=== PATIENT | female | born 1950 ===

== ENCOUNTER 2018-09-03 14:10 | Inpatient (IN) ==
--- NOTE | 2018-09-03 14:32 | Internal Med History&Physical ---
Addendum entered and electronically signed by Primo Estrada MD 09/03/18 14:45: I have personally performed a face to face evaluation on this patient. I have r eviewed and agree with the care plan. History and Exam by me shows: Patient is status post right total shoulder replacement by Dr. Harrell on August 31, 2018. She has done well without complication, postoperatively. She had a headache earlier today but this was relieved while on her way here, after a hydrocodone pain pill. She frequently has cluster headaches but has not had one for quite some time, states this is her first in months. She has mild photophobia and nausea with them and that was the case, earlier today. Allergies are as listed. Medications were reviewed with patient and nursing. Past surgeries have included recent surgery for left eye pterygium and this had to be revised slightly on 08/24/2018. She has an ointment which she is supposed to be using daily and a were not giving this at her other hospital. I asked her to have our nurse evaluate and include this in her medication regimen. 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 There is no evidence of recurrence. She has hypertension which is controlled, mild diabetes and takes metformin for same. 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 She has a "mild" heart murmur and underwent cardiac catheterization but was told this was normal. She has apparently had mild reflux esophagitis in the past but nothing recently. She has obstructive sleep apnea and for this uses CPAP, at home. She is on oxygen for COPD, allopurinol for gout. She has hyperlipidemia and takes a statin for same. She is a 40 pack year smoking history but stopped in 2004. She has been on oxygen at 2-3 L continuously since December of this year. She drinks a large beer once or twice a month but denies other alcohol drug use or marijuana smoking. She lives alone. 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 She has some dyspnea on exertion with a past history of anemia to make this worse but has now been at her baseline for quite some time. 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 She wears a full upper plate denture and a lower partial plate denture but this has been discarded. Patient has no complaint of chest discomfort, dyspnea, orthopnea, breathing problems, palpitations, nausea or vomiting, constipation or diarrhea, other changes in bowel habits, heartburn, difficulty with urination, kidney problems or kidney stones, fevers chills or sweats, rash or itching, seizures, headache or lightheadedness, heat or cold intolerance, blood problems or anemia, or other new complaints, except as mentioned above. Review of systems is otherwise negative. Examination: (Except as mentioned above): General: In no apparent distress, alert and oriented 3. Head: Atraumatic and normocephalic. Eyes: Extraocular muscles are intact, pupils equal round and reactive to light and accommodation. Sclerae anicteric. She has left lateral scleral abnormality consistent with her history of recent surgery. Ears: External ears are normal to inspection and hearing is grossly normal. Nose: Patent without lesion noted. Mouth: No intraoral lesions seen. Dentition is unremarkable. Full upper denture, as noted. She has most of her teeth even though she does not have a partial in place. Neck: Supple with trachea midline. There is no thyromegaly or adenopathy and carotids are 2+ without bruit heard. Respiratory: No use of accessory muscles. Lungs are clear throughout. Normal airflow. Cardiovascular: Regular rate and rhythm without murmur appreciated. Abdomen: Bowel sounds are normal. No hepatosplenomegaly masses or tenderness. Morbidly obese and therefore difficult to palpate deeply. Extremities: No cyanosis clubbing or edema. She is wearing a right sling. Distal neurovascular function is intact. Neurological: A and O 3. Cranial nerves II through XII are intact. No focal deficits and no abnormal movements or postures. Skin: Warm and non-diaphoretic with no lesions noted. Breasts, pelvic and rectal: Not examined. Patient will be admitted for physical therapy and return to normal function. Because of her recent shoulder surgery, she was advised to use incentive spirometer. We will keep her on oxygen. Until we are sure she is working adequately, she will be treated with heparin subcutaneous for DVT prophylaxis. We will keep her on a cardiac, diabetic diet and follow her sugar with sliding scale insulin and use her home metformin. She will have screening laboratory data. Original Note: Date of Encounter: 09/03/18 Time of Encounter: 14:29 Assessment and Plan (1) Status post reverse total arthroplasty of right shoulder Current visit: Yes Status: Acute Patient is status post right shoulder replacement on 08/31/18. Surgical incision appears healthy with minimal edema and no ecchymosis noted. Patient states that she has minimal pain at this time while at rest to the shoulder. States that pain medication has been effective. Physical therapy evaluation pending. We will continue with current plan of care. Right arm remains in sling with distal CV checks within normal limits (2) Hypertension Current visit: Yes Status: Chronic Vital signs stable. We will continue with current medications. Qualifiers: Hypertension type: unspecified Qualified Code(s): I10 - Essential (primary) hypertension (3) COPD (chronic obstructive pulmonary disease) Current visit: No Status: Chronic Patient with a history of COPD and currently on home O2. Patient denies any dyspnea or productive cough. Lungs are clear throughout but noted diminished bases. Patient likely with distant lung sounds to bases due to obesity. We will continue on current bronchodilators and medication. Qualifiers: COPD type: unspecified COPD Qualified Code(s): J44.9 - Chronic obstructive pulmonary disease, unspecified Internal Medicine - H&P: HPI Chief complaint: right shoulder replacement Admitted From: Home Plans for Post Hospital Care: Home History of present illness: Ms. Walls is a 68 year old female , who was transferred to this facility for rehabilitation following a right shoulder replacement on 08/31/18 and [facility]. Patient states that her recovery from surgery was uneventful. Patient currently states that she has minimal pain to right shoulder and that her pain medications have been effective. Patient currently denies any other discomforts or shortness of breath. Denies any productive cough. Patient's sensation to her right shoulder with dressing that remains dry and intact. No ecchymosis or erythema noted. Patient remains in right arm sling. Past Med Surg Social Fam HX - Past Medical History Medical history: arthritis, cancer, COPD, diabetes, glaucoma, hyperlipidemia, hypertension, other Additional medical history: artificial joints. depression/anxiety. recessed right breast cancer. high cholesterol. cataracts. home oxygen Psychiatric history: depression - Social History Smoking Status: Former smoker Smokeless Tobacco Status: No Alcohol use: none Drug use: none Internal Medicine - H&P: Meds Albuterol Sulfate 2.5 mg IH Q6H PRN 08/31/18 [History] Albuterol Sulfate [Albuterol Inhaler] 2 puff IH Q6H PRN 08/31/18 [History] Allopurinol [Zyloprim 100 MG] 100 mg PO DAILY 08/31/18 [History] Bupropion HCl [Wellbutrin Xl] 300 mg PO DAILY 08/31/18 [History] Heidy Albicans 1 tab PO DAILY 08/31/18 [History] Diclofenac Sodium [Voltaren] 2 - 3 gm TD QID 08/31/18 [History] Docusate Sodium [Colace] 100 mg PO BID 5 Days #10 capsule 08/31/18 [Rx] Duloxetine HCl [Cymbalta] 60 mg PO DAILY 08/31/18 [History] Fluticasone Propionate Nasal [Flonase] 1 spray NS DAILY 08/31/18 [History] Fluticasone/Vilanterol [Breo Ellipta 100-25 Mcg INH] 1 puff IH DAILY 08/31/18 [History] HYDROcodone/Acet 5/325 mg [Auxvasse 5-325 mg] 1 tab PO Q6H PRN 7 Days #28 tab 08/31/18 [Rx] Lansoprazole [Prevacid] 30 mg PO DAILY 08/31/18 [History] Meloxicam [Mobic] 15 mg PO DAILY 08/31/18 [History] Methylphenidate HCl [Ritalin] 10 mg PO BID 08/31/18 [History] Milk Thistle/Nac/Dandel/Turmer [Liver Complex Tablet] 1 tab PO DAILY 08/31/18 [History] Modafinil [Provigil] 1 tab PO BID 08/31/18 [History] Neomycin Sulf/Bacitracin/Poly [Tibopp-Stsbz-Tmzoyof Eye Oint] 1 drop BOTH EYES TID 08/31/18 [History] Tiotropium [place] [Spiriva Respimat] 2 puff IH DAILY 08/31/18 [History] hydroCHLOROthiazide [Hydrochlorothiazide] 25 mg PO DAILY 08/31/18 [History] Furosemide [Lasix] 40 mg PO DAILY 09/01/18 [History] Potassium Chloride [K-Tab ER] 20 meq PO BID 09/01/18 [History] hydrOXYzine pamoate [HydrOXYzine Pamoate] 25 mg PO TID PRN 09/01/18 [History] metFORMIN [Glucophage] 500 mg PO 0800 09/01/18 [History] Allergy/AdvReac Type Severity Reaction Status Date / Time acetaminophen [From Percocet] Allergy Itching Verified 08/25/18 14:06 oxycodone [From Percocet] Allergy Itching Verified 08/25/18 14:06 Sulfa (Sulfonamide Allergy Hives Verified 08/25/18 14:06 Antibiotics) All Systems PM: A 10-system review of systems was performed and is negative for pertinent findings except as documented above in the HPI. - Constitutional Constitutional: as per HPI, no chills, no fever(s), no night sweats - EENT Eyes: no change in vision, no discharge, no pain, no photophobia Ears: no ear discharge, no ear pain, no tinnitus Nose, mouth and throat: as per HPI, no dysphagia, no nasal discharge, no neck pain, no sore throat - Cardiovascular Cardiovascular ROS IM: as per HPI, no chest pain, no diaphoresis, no dyspnea, no lightheadedness, no palpitations, no syncope - Respiratory Respiratory: as per HPI, no cough, no dyspnea, no wheezing, no excessive phlegm production - Gastrointestinal Gastrointestinal: as per HPI, no abdominal pain, no diarrhea, no hematemesis, no hematochezia, no melena, no nausea, no vomiting - Genitourinary Genitourinary: as per HPI, no change in urinary stream, no dysuria, no flank pain, no hematuria - Musculoskeletal Musculoskeletal ROS IM: as per HPI, no numbness, no tingling - Integumentary Integumentary IM: as per HPI, no rash, no unusual bruising - Neurological Neurological ROS: as per HPI, no confusion, no convulsions, no focal weakness, no numbness, no tingling, no tremor(s) - Hematologic/Lymphatic Hematologic/Lymphatic: no easy bruising - Constitutional Vitals: Temp Pulse Resp BP Pulse Ox 98.0 F 101 18 156/97 97 09/03/18 14:17 09/03/18 14:17 09/03/18 14:17 09/03/18 14:17 09/03/18 14:17 General appearance: Present: A&O X 3, pleasant - Head Head exam: Present: atraumatic, normocephalic - Eye Eye exam: Present: PERRL, conjuntiva pink, sclera anicteric Pupils: Present: PERRL - Neck Neck exam general surgery: Present: supple, trachea midline. Absent: lymphadenopathy - Respiratory Respiratory exam: Present: CTAB. Absent: accessory muscle use, rales, rhonchi, wheezes Additional comments: Lungs are CTA to upper martinez and diminished bases. RR relaxed and reg - Cardiovascular Cardiovascular exam: Present: RRR, +S1, +S2. Absent: diastolic murmur, gallop, rubs, systolic murmur - GI/Abdominal GI/Abdominal exam: Present: normal bowel sounds, soft, no peritoneal signs. Absent: distended, tenderness - Extremities Exam Extremities exam: Present: warm, radial pulses palpable and symmetrical. Absent: calf tenderness, cyanotic, pedal edema Additional comments: Right shoulder with surgical incision dry and intact with minimal edema. No erythema or ecchymosis - Neurological Exam Neurological exam: Present: CN II-XII intact, oriented X3, no focal deficits. Absent: pronater drift, facial droop, speech deficit - Skin Skin exam: Present: dry, intact
[2018-09-03] MEDS ORDERED: Mag Hydrox/Al Hydrox/Simeth 30 ML UDC PO PRN (15:42)
[2018-09-03] MEDS ORDERED: D5% in Water 1,000 ML IVC PRN (15:43)
[2018-09-03] MEDS ORDERED: Dextrose Gel 15 GM/37.5 ML TUBE PO PRN ×2 (15:43)
[2018-09-03] MEDS ORDERED: *HR* Dextrose 50 % in Water (Syg) 50 ML SYRINGE IVP PRN (15:43)
[2018-09-03] MEDS: *HR* HYDROcodone/Acet 5/325 mg TABLET PO PRN ×2 (16:16→22:04)
[2018-09-03] MEDS: *HR* Heparin 5,000 UNIT/ML VIAL SQ SCH (17:46)
[2018-09-03] MEDS: Insulin LISPRO 300 UNITS/3 ML VIAL SQ SCH ×2 (17:47→21:48)
[2018-09-03] MEDS ORDERED: Methylphenidate HCl 10 MG TABLET PO SCH (21:00)
[2018-09-03] MEDS ORDERED: Albuterol 2.5 MG/3 ML NEBULIZER IH PRN (22:00)
[2018-09-03] MEDS: Neosporin Opth OINT 3.5 GM TUBE BOTH EYES SCH (22:10)
[2018-09-04 04:33] LABS: Bilirubin,Urine Negative (Negative); Blood,Urine Negative (Negative); Clarity,Urine Clear (Clear); Color,Urine Yellow (Yellow); Glucose,Urine (UA) Normal (Normal); Ketones,Urine Negative (Negative); Leukocyte Esterase,Urine Negative (Negative); Nitrite,Urine Negative (Negative); Protein,Urine Negative (Neg-Trace); Specific Gravity,Urine 1.015 (1.010-1.025); Urobilinogen,Urine Normal (Normal)
[2018-09-04] MEDS: *HR* Heparin 5,000 UNIT/ML VIAL SQ SCH ×2 (06:36→17:51)
[2018-09-04 06:42] LABS: Basophils % 0.3 %; Eosinophils # 0.2 K/mcL (0.0-0.6); Eosinophils % 1.8 %; Hematocrit 30.7 % (35.3-44.9); Hemoglobin 10.3 g/dL (11.5-15.4); Immature Granulocytes % 0.4 % (0-4); Lymphocytes # 2.1 K/mcL (0.6-4.6); Lymphocytes % 21.2 %; Mean Corpuscular HGB Conc 33.6 g/dL (31.6-35.5); Mean Corpuscular Volume 92.5 fL (83.0-100.0); Mean Platelet Volume 10.1 fL (9.4-12.4); Monocytes # 0.7 K/mcL (0.0-1.3); Monocytes % 6.7 %; Neutrophils # 6.9 K/mcL (1.6-8.9); Platelet Count 269 K/mcL (140-400); Red Blood Count 3.32 M/mcL (3.82-4.97); Segmented Neutrophils % 69.6 %
[2018-09-04 06:50] LABS: Alanine Aminotransferase 23 Units/L (7-52); Albumin 3.8 g/dL (3.5-5.7); Albumin/Globulin Ratio 1.4 (1.1-2.2); Alkaline Phosphatase 104 Units/L (34-104); Amylase 28 Units/L (29-103); Aspartate Amino Transferase 26 Units/L (13-39); BUN/Creatinine Ratio 20 (6-26); Bilirubin,Total 0.7 mg/dL (0.3-1.0); Blood Urea Nitrogen 12 mg/dL (8-23); Calcium 9.7 mg/dL (8.6-10.3); Carbon Dioxide 37 mEq/L (23-29); Chloride 94 mEq/L (98-107); Globulin 2.8 g/dL (2.4-3.5); Glucose 146 mg/dL (70-105); Lipase 15 Units/L (11-82); Magnesium 1.8 mg/dL (1.6-2.6); Osmolality,Calculated 286 (280-300); Potassium 3.6 mEq/L (3.5-5.1); Sodium 137 mEq/L (136-145); Total Protein 6.6 g/dL (6.4-8.9); eGFR For Non-African Americans > 60 (> 60)
[2018-09-04] MEDS: *HR* HYDROcodone/Acet 5/325 mg TABLET PO PRN ×2 (06:50→20:44)
[2018-09-04] MEDS: [UNRECOGNIZED DRUG - OTHER] PO SCH (08:23)
[2018-09-04] MEDS: Furosemide 40 MG TABLET PO SCH (08:26)
[2018-09-04] MEDS: BuPROPion XL (24 HR) 150 MG TABLET PO SCH (08:26)
[2018-09-04] MEDS: hydroCHLOROthiazide 25 MG TABLET PO SCH (08:26)
[2018-09-04] MEDS: (Fluticasone/Vilanterol [Breo Ellipta 100-25 Mcg Inh]) IH SCH (08:27)
[2018-09-04] MEDS: *HR* Metformin 500 MG TABLET PO SCH (08:27)
[2018-09-04] MEDS: (Tiotropium Bromide [Spiriva Respimat] 2 PUFF) IH SCH (08:27)
[2018-09-04] MEDS: Insulin LISPRO 300 UNITS/3 ML VIAL SQ SCH ×4 (08:28→20:43)
[2018-09-04] MEDS: Methylphenidate HCl 10 MG TABLET PO SCH (09:22)
[2018-09-04] MEDS: Fluticasone Propionate Nasal 50 MCG/SPRAY BOTTLE NS SCH (09:23)
[2018-09-04] MEDS: Neosporin Opth OINT 3.5 GM TUBE BOTH EYES SCH ×3 (09:24→20:48)
--- NOTE | 2018-09-04 12:42 | Internal Med Progress Note ---
Addendum entered and electronically signed by Primo Estrada MD 09/04/18 14:07: I have personally performed a face to face evaluation on this patient. I have r eviewed and agree with the care plan. History and Exam by me shows: Patient is without complaint and states that she still has not moved her bowels. She has had no change in her urinary symptoms and I informed her that her urinalysis showed no sign of infection. Discussed care with other providers and/or nursing. Patient has no complaint of chest discomfort, dyspnea, orthopnea, palpitations, nausea or vomiting, constipation or diarrhea, other changes in bowel habits, difficulty with urination, rash or itching, or other new complaints, except as mentioned above. Review of systems is otherwise negative. Examination: (Except as mentioned above): General: In no apparent distress. Alert and oriented 3. Nondiaphoretic. Head: Atraumatic and normocephalic. Respiratory: No use of accessory muscles. Lungs are clear throughout. Normal airflow. Cardiovascular: Regular rate and rhythm without murmur appreciated. Abdomen: Bowel sounds are normal. No hepatosplenomegaly mass or tenderness appreciated. Obese and therefore difficult to palpate deeply. Extremities: No cyanosis clubbing or edema. Right upper extremity still in sling. She has good distal neurovascular function. Skin: Warm and non-diaphoretic with no new lesions noted. Original Note: Date of Encounter: 09/04/18 Time of Encounter: 12:40 - Assessment and plan (1) Status post reverse total arthroplasty of right shoulder Current Visit: Yes Status: Acute Assessment and plan: No acute issues. Right shoulder surgical incision remains healthy in appearance. Patient states that pain continues to be tolerable with current pain medications. Started physical therapy and progressing well. Right arm remains in sling. We will continue with current plan of care (2) Hypertension Current Visit: Yes Status: Chronic Assessment and plan: Vital signs are stable. We will continue with current medications. Qualifiers: Hypertension type: unspecified Qualified Code(s): I10 - Essential (primary) hypertension (3) COPD (chronic obstructive pulmonary disease) Current Visit: No Status: Chronic Assessment and plan: No acute issues. Patient denies any dyspnea or productive cough. Lungs are clear throughout with diminished breath sounds to lower martinez. We will continue with current medications. Qualifiers: COPD type: unspecified COPD Qualified Code(s): J44.9 - Chronic obstructive pulmonary disease, unspecified - Time Spent With Patient less than 15 minutes - Subjective Interval history: Patient appears relaxed currently denies any discomforts or shortness of breath. Patient states that her pain to her right shoulder surgical site remains tolerable with current pain medications. States that she started physical therapy today and feels that she is progressing well. - Constitutional Vitals: Temp Pulse Resp BP Pulse Ox 98.0 F 100 18 144/84 91 09/04/18 07:02 09/04/18 07:02 09/04/18 07:02 09/04/18 07:02 09/04/18 07:02 General appearance: Present: A&O X 3, pleasant - Head Head exam: Present: atraumatic, normocephalic - Eye Eye exam: Present: PERRL, conjuntiva pink, sclera anicteric Pupils: Present: PERRL - Neck Neck exam general surgery: Present: supple, trachea midline. Absent: lym phadenopathy - Respiratory Respiratory exam: Present: CTAB. Absent: accessory muscle use, rales, rhonchi, wheezes Additional comments: Lungs are clear throughout upper martinez and diminished bases. Patient has distant breath sounds to lower martinez, secondary to obesity. Respiratory effort appears relaxed - Cardiovascular Cardiovascular exam: Present: RRR, +S1, +S2. Absent: diastolic murmur, gallop, rubs, systolic murmur - GI/Abdominal GI/Abdominal exam: Present: normal bowel sounds, soft, no peritoneal signs. Absent: distended, tenderness - Extremities Exam Extremities exam: Present: warm, radial pulses palpable and symmetrical. Absent: calf tenderness, cyanotic, pedal edema Additional comments: Right shoulder surgical incision appears dry and intact. Slight swelling noted to right shoulder. No ecchymosis or erythema noted. - Neurological Exam Neurological exam: Present: CN II-XII intact, oriented X3, no focal deficits. Absent: pronater drift, facial droop, speech deficit - Skin Skin exam: Present: dry, intact Internal Medicine: Result - Labs CBC & Chem 7: 09/04/18 06:24 09/04/18 06:24 Labs: Short CBC 09/04/18 Range/Units 06:24 WBC 9.9 (4.3-11.1) K/mcL Hgb 10.3 L (11.5-15.4) g/dL Hct 30.7 L (35.3-44.9) % Plt Count 269 (140-400) K/mcL Neutrophils # 6.9 (1.6-8.9) K/mcL BMP 09/04/18 06:24 Sodium 137 Potassium 3.6 Chloride 94 L Carbon Dioxide 37 H BUN 12 Creatinine 0.61 Glucose 146 H Calcium 9.7 Liver Function 09/04/18 Range/Units 06:24 Total Bilirubin 0.7 (0.3-1.0) mg/dL AST 26 (13-39) Units/L ALT 23 (7-52) Units/L Alkaline Phosphatase 104 (34-104) Units/L Albumin 3.8 (3.5-5.7) g/dL Urine 09/04/18 Range/Units 02:00 Urine Color Yellow (Yellow) Urine Clarity Clear (Clear) Urine pH 6.0 (5.0-8.0) pH Units Ur Specific [place] 1.015 (1.010-1.025) Urine Protein Negative (Neg-Trace) mg/dL Urine Glucose (UA) Normal (Normal) mg/dL Consult Discharge Plan - Plan Referrals: Akiko Santana M.D. [Primary Care Provider] -
[2018-09-04] MEDS: hydrOXYzine pamoate 25 MG CAPSULE PO PRN (20:44)
[2018-09-05] MEDS: *HR* Heparin 5,000 UNIT/ML VIAL SQ SCH ×2 (05:30→17:55)
[2018-09-05] MEDS: Insulin LISPRO 300 UNITS/3 ML VIAL SQ SCH ×4 (09:14→20:47)
[2018-09-05] MEDS: *HR* HYDROcodone/Acet 5/325 mg TABLET PO PRN ×2 (09:19→20:48)
[2018-09-05] MEDS: BuPROPion XL (24 HR) 150 MG TABLET PO SCH (09:19)
[2018-09-05] MEDS: Methylphenidate HCl 10 MG TABLET PO SCH (09:20)
[2018-09-05] MEDS: Furosemide 40 MG TABLET PO SCH (09:20)
[2018-09-05] MEDS: *HR* Metformin 500 MG TABLET PO SCH (09:21)
[2018-09-05] MEDS: hydroCHLOROthiazide 25 MG TABLET PO SCH (09:21)
[2018-09-05] MEDS: (Fluticasone/Vilanterol [Breo Ellipta 100-25 Mcg Inh]) IH SCH (09:24)
[2018-09-05] MEDS: (Tiotropium Bromide [Spiriva Respimat] 2 PUFF) IH SCH (09:24)
--- NOTE | 2018-09-05 09:26 | Internal Med Progress Note ---
Date of Encounter: 09/05/18 Time of Encounter: 09:24 - Assessment and plan (1) Diabetes 1.5, managed as type 2 Current Visit: Yes Status: Chronic Assessment and plan: On oral meds , Sliding scale . HBA1c ordered overall she seems to be doing well Continue present management adjust meds as needed (2) Unspecified rotator cuff tear or rupture of right shoulder, not specified as traumatic Current Visit: No Status: Acute Assessment and plan: incision good healing well getting rehab and seems to be doing well Qualifiers: Rotator cuff tear extent: unspecified tear extent Qualified Code(s): M75.101 - Unspecified rotator cuff tear or rupture of right shoulder, not specified as traumatic (3) COPD (chronic obstructive pulmonary disease) Current Visit: No Status: Chronic Assessment and plan: Her breathing is baseline uses inhalers continue to monitor no acute issues with breathing at the preset time Qualifiers: COPD type: unspecified COPD Qualified Code(s): J44.9 - Chronic obstructive pulmonary disease, unspecified (4) Hypertension Current Visit: Yes Status: Chronic Assessment and plan: stable apparently she is taking HTCZ and Lasix both loop diuretics not sure whey Hold HTCZ as that could also make her bood sugars highere followup and adjust meds as needed She also has fatty tissue in her left eye which was removed some times ago but has started coming back agian it itches Discussed with her , use cold water splashes for itching , artificial tears as well . needs to see ophthalmology and removal of this fatty tissue as was done previously . Qualifiers: Hypertension type: unspecified Qualified Code(s): I10 - Essential (primary) hypertension - Subjective Interval history: No active issues pain in her shoulder is well controlled no fever or chills getting rehab . No SOB , nausea vomiting or diarrhea Has small fatty tissue left angle of eye which causes some itching no pain or change in her vision. - Constitutional Vitals: Temp Pulse Resp BP Pulse Ox 98.0 F 90 15 113/71 98 09/05/18 07:30 09/05/18 07:30 09/05/18 07:30 09/05/18 07:30 09/05/18 07:30 General appearance: Present: A&O X 3, morbidly obese, pleasant - Head Head exam: Present: atraumatic - Eye Additional comments: left eye fatty tissue lateral angle conjunctiva normal looking no discharge - Neck Neck exam general surgery: Present: full ROM, supple. Absent: tenderness, nuchal rigidity - Respiratory Respiratory exam: Present: CTAB. Absent: chest wall tenderness, decreased breat h sounds, prolonged expiratory phase, rales, respiratory distress, stridor, wheezes - Cardiovascular Cardiovascular exam: Present: RRR, +S1, +S2. Absent: clicks, irregular rhythm, JVD, rubs, systolic murmur - GI/Abdominal GI/Abdominal exam: Present: normal bowel sounds, soft. Absent: firm, mass, rebound, rigid, splenomegaly, tenderness - Extremities Exam Additional comments: right shoulder in sling no swelling of the hand noted left hand normal no edema both legs - Neurological Exam Neurological exam: Present: alert, CN II-XII intact, oriented X3, no focal deficits, strengths equal and symetr throughout. Absent: facial droop, speech deficit Internal Medicine: Result - Labs CBC & Chem 7: 09/04/18 06:24 09/04/18 06:24 Consult Discharge Plan - Plan Referrals: Akiko Santana M.D. [Primary Care Provider] -
[2018-09-05] MEDS: Fluticasone Propionate Nasal 50 MCG/SPRAY BOTTLE NS SCH (11:36)
[2018-09-05] MEDS: [UNRECOGNIZED DRUG - OTHER] PO SCH (11:36)
[2018-09-05] MEDS: Neosporin Opth OINT 3.5 GM TUBE BOTH EYES SCH ×3 (11:36→20:47)
[2018-09-05 19:30] LABS: Estimated Average Glucose 128 mg/dl; Hemoglobin A1C 6.1 %
[2018-09-05] MEDS: hydrOXYzine pamoate 25 MG CAPSULE PO PRN (20:48)
[2018-09-06] MEDS: *HR* Heparin 5,000 UNIT/ML VIAL SQ SCH ×2 (06:29→18:10)
[2018-09-06] MEDS: *HR* Metformin 500 MG TABLET PO SCH (08:56)
[2018-09-06] MEDS: BuPROPion XL (24 HR) 150 MG TABLET PO SCH (08:56)
[2018-09-06] MEDS: Furosemide 40 MG TABLET PO SCH (08:56)
[2018-09-06] MEDS: Methylphenidate HCl 10 MG TABLET PO SCH (08:56)
--- NOTE | 2018-09-06 09:08 | Internal Med Progress Note ---
Date of Encounter: 09/06/18 Time of Encounter: 09:06 - Assessment and plan (1) Diabetes 1.5, managed as type 2 Current Visit: Yes Status: Chronic Assessment and plan: Blood sugars today slightly high will follow and adjsut meds if needed otherwise continue present meds . Needs some diet control if possible (2) Unspecified rotator cuff tear or rupture of right shoulder, not specified as traumatic Current Visit: No Status: Acute Assessment and plan: stable getting PT and is improving Qualifiers: Rotator cuff tear extent: unspecified tear extent Qualified Code(s): M75.101 - Unspecified rotator cuff tear or rupture of right shoulder, not specified as traumatic (3) COPD (chronic obstructive pulmonary disease) Current Visit: No Status: Chronic Assessment and plan: stable using inhalers as needed overall stable Qualifiers: COPD type: unspecified COPD Qualified Code(s): J44.9 - Chronic obstructive pulmonary disease, unspecified (4) Hypertension Current Visit: Yes Status: Chronic Assessment and plan: stable on meds continue present treatment Qualifiers: Hypertension type: unspecified Qualified Code(s): I10 - Essential (primary) hypertension - Subjective Interval history: No active issues pain in her shoulder is well controlled no fever or chills getting rehab . No SOB , nausea vomiting or diarrhea Eye still has some ithcing . Meds provagil was hanged to her home dosage - Constitutional Vitals: Temp Pulse Resp BP Pulse Ox 98.4 F 91 16 117/77 93 09/06/18 07:16 09/06/18 07:16 09/06/18 07:16 09/06/18 07:16 09/06/18 07:16 General appearance: Present: A&O X 3, morbidly obese, pleasant - Head Head exam: Present: atraumatic - Eye Eye exam: Present: PERRL, sclera anicteric Pupils: Present: PERRL Additional comments: fatty tissue left eye as before no change - Neck Neck exam general surgery: Present: full ROM, supple. Absent: nuchal rigidity - Respiratory Respiratory exam: Present: CTAB. Absent: prolonged expiratory phase, rales, respiratory distress, rhonchi, stridor, wheezes - Cardiovascular Cardiovascular exam: Present: RRR, +S1, +S2. Absent: bradycardia, diastolic murmur, irregular rhythm, JVD, systolic murmur, tachycardia - GI/Abdominal GI/Abdominal exam: Present: normal bowel sounds, soft, splenomegaly. Absent: distended, firm, guarding, mass, rebound, rigid, tenderness, no peritoneal signs - Extremities Exam Extremities exam: Absent: pedal edema, tenderness - Incison Incision: Present: clean and dry, intact. Absent: erythema, purulent, indurated - Neurological Exam Neurological exam: Present: CN II-XII intact, oriented X3, no focal deficits, strengths equal and symetr throughout. Absent: pronater drift, facial droop, speech deficit Internal Medicine: Result - Labs CBC & Chem 7: 09/04/18 06:24 09/04/18 06:24 Consult Discharge Plan - Plan Referrals: Akiko Santana M.D. [Primary Care Provider] -
[2018-09-06] MEDS: Fluticasone Propionate Nasal 50 MCG/SPRAY BOTTLE NS SCH (11:50)
[2018-09-06] MEDS: Neosporin Opth OINT 3.5 GM TUBE BOTH EYES SCH ×3 (11:50→18:11)
[2018-09-06] MEDS: [UNRECOGNIZED DRUG - OTHER] PO SCH (11:50)
[2018-09-06] MEDS: Insulin LISPRO 300 UNITS/3 ML VIAL SQ SCH ×4 (11:50→20:50)
[2018-09-06] MEDS: (Fluticasone/Vilanterol [Breo Ellipta 100-25 Mcg Inh]) IH SCH (11:56)
[2018-09-06] MEDS: (Tiotropium Bromide [Spiriva Respimat] 2 PUFF) IH SCH (11:57)
[2018-09-06] MEDS: Artificial Tears SOLN 15 ML BOTTLE LEFT EYE SCH ×4 (11:58→20:49)
[2018-09-06] MEDS: *HR* HYDROcodone/Acet 5/325 mg TABLET PO PRN (20:50)
[2018-09-06] MEDS: hydrOXYzine pamoate 25 MG CAPSULE PO PRN (20:50)
[2018-09-07] MEDS: *HR* HYDROcodone/Acet 5/325 mg TABLET PO PRN ×3 (03:30→20:30)
[2018-09-07] MEDS: *HR* Heparin 5,000 UNIT/ML VIAL SQ SCH ×2 (06:05→18:16)
[2018-09-07] MEDS: *HR* Metformin 500 MG TABLET PO SCH (08:45)
[2018-09-07] MEDS: BuPROPion XL (24 HR) 150 MG TABLET PO SCH (08:45)
[2018-09-07] MEDS: Furosemide 40 MG TABLET PO SCH (08:45)
[2018-09-07] MEDS: Artificial Tears SOLN 15 ML BOTTLE LEFT EYE SCH ×4 (08:46→21:37)
[2018-09-07] MEDS: Methylphenidate HCl 10 MG TABLET PO SCH (08:46)
[2018-09-07] MEDS: Insulin LISPRO 300 UNITS/3 ML VIAL SQ SCH ×4 (08:46→20:19)
[2018-09-07] MEDS: Neosporin Opth OINT 3.5 GM TUBE BOTH EYES SCH ×2 (08:47→14:55)
[2018-09-07] MEDS: Fluticasone Propionate Nasal 50 MCG/SPRAY BOTTLE NS SCH (08:47)
[2018-09-07] MEDS: (Tiotropium Bromide [Spiriva Respimat] 2 PUFF) IH SCH (08:49)
[2018-09-07] MEDS: (Fluticasone/Vilanterol [Breo Ellipta 100-25 Mcg Inh]) IH SCH (08:49)
[2018-09-07] MEDS: [UNRECOGNIZED DRUG - OTHER] PO SCH (08:50)
--- NOTE | 2018-09-07 12:03 | Internal Med Progress Note ---
Addendum entered and electronically signed by Primo Estrada MD 09/08/18 12:23: I have personally performed a face to face evaluation on this patient. I have r eviewed and agree with the care plan. History and Exam by me shows: The patient was evaluated by me yesterday but the note was not complete. This documentation is being completed today for that reason. The patient is mainly irritated with her left eye. This is itchy, irritated, and she feels like she must much of the time. The area that looks like a pterygium is about 4 times larger than it was only a few days ago. She has marked injection of the conjunctiva. Discussed care with other providers and/or nursing. Patient has no complaint of chest discomfort, dyspnea, orthopnea, palpitations, nausea or vomiting, constipation or diarrhea, other changes in bowel habits, difficulty with urination, rash or itching, or other new complaints, except as mentioned above. Review of systems is otherwise negative. Examination: (Except as mentioned above): General: In no apparent distress. Alert and oriented 3. Nondiaphoretic. Head: Atraumatic and normocephalic. Respiratory: No use of accessory muscles. Lungs are clear throughout. Normal airflow. Cardiovascular: Regular rate and rhythm without murmur appreciated. Abdomen: Bowel sounds are normal. No hepatosplenomegaly mass or tenderness appreciated. Obese and therefore difficult to palpate deeply. Extremities: No cyanosis clubbing or edema. Skin: Warm and non-diaphoretic with no new lesions noted. We will treat this with topical Maxitrol she is allergic to sulfa and we cannot use sulfacetamide eyedrops. We will give her as systemic antibiotic in the form of Keflex for 5 days. We will ask that she have a warm compress to the area 4 times daily. Original Note: Date of Encounter: 09/07/18 Time of Encounter: 12:01 - Assessment and plan (1) Status post reverse total arthroplasty of right shoulder Current Visit: Yes Status: Acute Assessment and plan: Pain controlled with current medication. Continue PT and OT. Continue sling to right arm. Follow up with surgeon as scheduled. (2) Periorbital cellulitis of left eye Current Visit: Yes Status: Acute Assessment and plan: Keflex and yet Maxa tall ordered for 5 days. Warm compress ordered. Instructed patient to not touch or rub eye. Will monitor for improvement. (3) Hypertension Current Visit: Yes Status: Chronic Assessment and plan: Controlled with current medication. Monitor blood pressure. Qualifiers: Hypertension type: unspecified Qualified Code(s): I10 - Essential (primary) hypertension (4) COPD (chronic obstructive pulmonary disease) Current Visit: Yes Status: Chronic Assessment and plan: Stable. Denies any shortness of breath. Continue oxygen per nasal cannula. Maintaining O2 sats. Qualifiers: COPD type: unspecified COPD Qualified Code(s): J44.9 - Chronic obstructive pulmonary disease, unspecified (5) Obesity (BMI 30-39.9) Current Visit: Yes Status: Acute (6) Diabetes 1.5, managed as type 2 Current Visit: Yes Status: Chronic Assessment and plan: Continue metformin and insulin per sliding scale. Monitor fingerstick blood sugar. Will adjust medicines as necessary. - Time Spent With Patient less than 15 minutes - Subjective Interval history: Participating well with therapy. Has right arm in sling status post right shoulder surgery. Denies shortness of breath or chest pain. History of COPD has been oxygen independent for the past year. Patient denies fever, chills, nausea vomiting or diarrhea. Maintaining appetite and hydration. States bowels are moving as normal. Complaining of left eye surrounding area being swollen irritated. States this is happen before and she has had to have surgery for it. No change in vision. - Constitutional Vitals: Temp Pulse Resp BP Pulse Ox 98.5 F 79 16 111/63 92 09/07/18 08:09 09/07/18 08:09 09/07/18 08:09 09/07/18 08:09 09/07/18 08:09 General appearance: Present: cooperative, A&O X 3, morbidly obese, pleasant, no acute distress, answers questions appropriately - Head Head exam: Present: atraumatic, normocephalic - Eye Eye exam: Present: PERRL, conjuntiva pink, sclera anicteric Pupils: Present: PERRL Additional comments: Left eye with moderate. periOrbital edema. No drainage. - Neck Neck exam general surgery: Present: supple, trachea midline. Absent: lymphadenopathy - Respiratory Respiratory exam: Present: CTAB. Absent: accessory muscle use, rales, rhonchi, wheezes - Cardiovascular Cardiovascular exam: Present: RRR, +S1, +S2. Absent: diastolic murmur, gallop, rubs, systolic murmur - GI/Abdominal GI/Abdominal exam: Present: normal bowel sounds, soft, no peritoneal signs. Absent: distended, tenderness - Extremities Exam Extremities exam: Present: warm, radial pulses palpable and symmetrical. Absent: calf tenderness, cyanotic, pedal edema - Neurological Exam Neurological exam: Present: CN II-XII intact, oriented X3, no focal deficits. Absent: pronater drift, facial droop, speech deficit - Skin Skin exam: Present: dry, intact Internal Medicine: Result - Labs CBC & Chem 7: 09/04/18 06:24 09/04/18 06:24 Consult Discharge Plan - Plan Referrals: Akiko Santana M.D. [Primary Care Provider] -
[2018-09-07] MEDS: hydroCHLOROthiazide 25 MG TABLET PO SCH (14:53)
[2018-09-07] MEDS: cephALEXin 500 MG CAPSULE PO SCH ×3 (14:53→20:30)
[2018-09-07] MEDS: Maxitrol OPTH SUSP 5 ML BOTTLE LEFT EYE SCH ×3 (14:57→20:31)
[2018-09-07] MEDS: hydrOXYzine pamoate 25 MG CAPSULE PO PRN (21:36)
[2018-09-08] MEDS: *HR* Heparin 5,000 UNIT/ML VIAL SQ SCH ×2 (05:10→17:51)
[2018-09-08] MEDS: hydroCHLOROthiazide 25 MG TABLET PO SCH (09:06)
[2018-09-08] MEDS: Furosemide 40 MG TABLET PO SCH (09:06)
[2018-09-08] MEDS: cephALEXin 500 MG CAPSULE PO SCH ×4 (09:06→20:42)
[2018-09-08] MEDS: Methylphenidate HCl 10 MG TABLET PO SCH (09:06)
[2018-09-08] MEDS: [UNRECOGNIZED DRUG - OTHER] PO SCH (09:07)
[2018-09-08] MEDS: *HR* Metformin 500 MG TABLET PO SCH (09:07)
[2018-09-08] MEDS: (Fluticasone/Vilanterol [Breo Ellipta 100-25 Mcg Inh]) IH SCH (09:07)
[2018-09-08] MEDS: BuPROPion XL (24 HR) 150 MG TABLET PO SCH (09:07)
[2018-09-08] MEDS: (Tiotropium Bromide [Spiriva Respimat] 2 PUFF) IH SCH (09:08)
[2018-09-08] MEDS: Insulin LISPRO 300 UNITS/3 ML VIAL SQ SCH ×4 (09:17→21:02)
[2018-09-08] MEDS: Fluticasone Propionate Nasal 50 MCG/SPRAY BOTTLE NS SCH (09:17)
[2018-09-08] MEDS: Artificial Tears SOLN 15 ML BOTTLE LEFT EYE SCH ×4 (09:17→20:42)
[2018-09-08] MEDS: Maxitrol OPTH SUSP 5 ML BOTTLE LEFT EYE SCH ×4 (09:18→20:42)
--- NOTE | 2018-09-08 11:45 | Internal Med Progress Note ---
Addendum entered and electronically signed by Primo Estrada MD 09/08/18 12:25: I have personally performed a face to face evaluation on this patient. I have r eviewed and agree with the care plan. History and Exam by me shows: Patient feels she has improved greatly since yesterday. She is wearing an eye patch over the left eye. This is much less irritated. Discussed care with other providers and/or nursing. Patient has no complaint of chest discomfort, dyspnea, orthopnea, palpitations, nausea or vomiting, constipation or diarrhea, other changes in bowel habits, difficulty with urination, rash or itching, or other new complaints, except as m entioned above. Review of systems is otherwise negative. Examination: (Except as mentioned above): General: In no apparent distress. Alert and oriented 3. Nondiaphoretic. Head: Atraumatic and normocephalic. Respiratory: No use of accessory muscles. Lungs are clear throughout. Normal airflow. Cardiovascular: Regular rate and rhythm without murmur appreciated. Abdomen: Bowel sounds are normal. No hepatosplenomegaly mass or tenderness appreciated. Obese and therefore difficult to palpate deeply. The patient requires a wheelchair to successfully complete activities of daily living inclu ding: Toileting, feeding, bathing, dressing, and grooming. This includes daily tasks in the home. The wheelchair is necessary due to the patient's impaired ambulation and mobility restrictions as they would be unable to resolve these daily living tasks using a cane or walker. The patient is capable of using a wheelchair safely in the home and can maneuver within the home without problems; they have adequate access. They are able to self propel a wheelchair within the home. The patient has not expressed an unwillingness to use the wheelchair. Extremities: No cyanosis clubbing or edema. She has good distal neurovascular function and a great grasp with the right hand. Skin: Warm and non-diaphoretic with no new lesions noted. The left eye is much less irritated, less periorbital edema (which was about half of the upper and lower leg, yesterday) the area at the lateral conjunctiva/sclera is nearly normal in appearance, today. This represents significant improvement in her parents. Because of impulsiveness and concerns about falls, therapy staff feels that she should have 24 7 care. She is not able to arrange us at home and will plan to go to an ECF. Potential discharge tomorrow. Original Note: Date of Encounter: 09/08/18 Time of Encounter: 11:43 - Assessment and plan (1) Status post reverse total arthroplasty of right shoulder Current Visit: Yes Status: Acute Assessment and plan: Pain controlled with current medication. Continue PT and OT. Continue sling to right arm. Follow up with surgeon as scheduled. (2) Periorbital cellulitis of left eye Current Visit: Yes Status: Acute Assessment and plan: Keflex and maxitrol ordered for 5 days. Warm compress ordered. Instructed patient to not touch or rub eye. Will monitor for improvement. (3) Hypertension Current Visit: Yes Status: Chronic Assessment and plan: Controlled with current medication. Monitor blood pressure. Qualifiers: Hypertension type: unspecified Qualified Code(s): I10 - Essential (primary) hypertension (4) COPD (chronic obstructive pulmonary disease) Current Visit: Yes Status: Chronic Assessment and plan: Stable. Denies any shortness of breath. Continue oxygen per nasal cannula. Maintaining O2 sats. Qualifiers: COPD type: unspecified COPD Qualified Code(s): J44.9 - Chronic obstructive pulmonary disease, unspecified (5) Obesity (BMI 30-39.9) Current Visit: Yes Status: Acute (6) Diabetes 1.5, managed as type 2 Current Visit: Yes Status: Chronic Assessment and plan: Continue metformin and insulin per sliding scale. Monitor fingerstick blood sugar. Will adjust medicines as necessary. - Time Spent With Patient less than 15 minutes - Subjective Interval history: states she slept well. Participating well with therapy. Has right arm in sling status post right shoulder surgery. Denies shortness of breath or chest pain. History of COPD has been oxygen independent for the past year. Patient denies fever, chills, nausea vomiting or diarrhea. Maintaining appetite and hydration. States bowels are moving as normal. Complaining of left eye surrounding area being swollen irritated. wearing a patch over it in order to not rub it. No change in vision. - Constitutional Vitals: Temp Pulse Resp BP Pulse Ox 98.7 F 81 16 125/74 95 09/08/18 08:00 09/08/18 08:00 09/08/18 08:00 09/08/18 08:00 09/08/18 08:00 General appearance: Present: cooperative, A&O X 3, morbidly obese, pleasant, no acute distress, answers questions appropriately - Head Head exam: Present: atraumatic, normocephalic - Eye Eye exam: Present: PERRL, conjuntiva pink, sclera anicteric Pupils: Present: PERRL - Neck Neck exam general surgery: Present: supple, trachea midline. Absent: lymphadenopathy - Respiratory Respiratory exam: Present: CTAB. Absent: accessory muscle use, rales, rhonchi, wheezes - Cardiovascular Cardiovascular exam: Present: RRR, +S1, +S2. Absent: diastolic murmur, gallop, rubs, systolic murmur - GI/Abdominal GI/Abdominal exam: Present: normal bowel sounds, soft, no peritoneal signs. Abs ent: distended, tenderness - Extremities Exam Extremities exam: Present: warm, radial pulses palpable and symmetrical. Absent: calf tenderness, cyanotic, pedal edema - Incison Comments: right shoulder surgical incision, drsg dry and intact. no drainage. - Neurological Exam Neurological exam: Present: CN II-XII intact, oriented X3, no focal deficits. Absent: pronater drift, facial droop, speech deficit - Skin Skin exam: Present: dry, intact Internal Medicine: Result - Labs CBC & Chem 7: 09/04/18 06:24 09/04/18 06:24 Consult Discharge Plan - Plan Referrals: Akiko Santana M.D. [Primary Care Provider] -
[2018-09-08] MEDS: hydrOXYzine pamoate 25 MG CAPSULE PO PRN (21:58)
[2018-09-08] MEDS: *HR* HYDROcodone/Acet 5/325 mg TABLET PO PRN (21:58)
[2018-09-09] MEDS: *HR* Heparin 5,000 UNIT/ML VIAL SQ SCH (05:39)
[2018-09-09] MEDS: Maxitrol OPTH SUSP 5 ML BOTTLE LEFT EYE SCH ×2 (06:41→15:46)
[2018-09-09 06:55] VITALS: BP 132/65
[2018-09-09] MEDS: BuPROPion XL (24 HR) 150 MG TABLET PO SCH (08:21)
[2018-09-09] MEDS: Methylphenidate HCl 10 MG TABLET PO SCH (08:21)
[2018-09-09] MEDS: hydroCHLOROthiazide 25 MG TABLET PO SCH (08:22)
[2018-09-09] MEDS: *HR* Metformin 500 MG TABLET PO SCH (08:22)
[2018-09-09] MEDS: Insulin LISPRO 300 UNITS/3 ML VIAL SQ SCH ×2 (08:23→12:06)
[2018-09-09] MEDS: Furosemide 40 MG TABLET PO SCH (08:23)
[2018-09-09] MEDS: cephALEXin 500 MG CAPSULE PO SCH ×2 (08:23→15:46)
[2018-09-09] MEDS: (Tiotropium Bromide [Spiriva Respimat] 2 PUFF) IH SCH (08:26)
[2018-09-09] MEDS: (Fluticasone/Vilanterol [Breo Ellipta 100-25 Mcg Inh]) IH SCH (08:26)
[2018-09-09] MEDS: Fluticasone Propionate Nasal 50 MCG/SPRAY BOTTLE NS SCH (08:28)
[2018-09-09] MEDS: [UNRECOGNIZED DRUG - OTHER] PO SCH (08:28)
[2018-09-09] MEDS: Artificial Tears SOLN 15 ML BOTTLE LEFT EYE SCH ×2 (08:28→15:46)
--- NOTE | 2018-09-09 11:36 | Physician Discharge Referral ---
Addendum entered and electronically signed by Primo Estrada MD 09/09/18 13:25: Original Note: ExtendedCare Referral Info Transfer To: [facility] Provider in Charge after Transfer: PCP Institutional Level of Care: Skilled - Diagnosis (1) Status post reverse total arthroplasty of right shoulder Priority: Primary Status: Acute (2) Periorbital cellulitis of left eye Priority: Secondary Status: Acute (3) Hypertension Priority: Secondary Status: Chronic (4) COPD (chronic obstructive pulmonary disease) Priority: Secondary Status: Chronic (5) Obesity (BMI 30-39.9) Priority: Secondary Status: Acute (6) Diabetes 1.5, managed as type 2 Priority: Secondary Status: Chronic Prognosis: Good Aware of Diagnosis: Patient Aware of Prognosis: Patient - Transfer Medications Home Medications: Albuterol Sulfate 2.5 mg IH Q6H PRN 08/31/18 [History] Albuterol Sulfate [Albuterol Inhaler] 2 puff IH Q6H PRN 08/31/18 [History] Allopurinol [Zyloprim 100 MG] 100 mg PO DAILY 08/31/18 [History] Bupropion HCl [Wellbutrin Xl] 300 mg PO DAILY 08/31/18 [History] Heidy Albicans 1 tab PO DAILY 08/31/18 [History] Diclofenac Sodium [Voltaren] 2 - 3 gm TD QID 08/31/18 [History] Duloxetine HCl [Cymbalta] 60 mg PO DAILY 08/31/18 [History] Fluticasone Propionate Nasal [Flonase] 1 spray NS DAILY 08/31/18 [History] Fluticasone/Vilanterol [Breo Ellipta 100-25 Mcg INH] 1 puff IH DAILY 08/31/18 [History] Lansoprazole [Prevacid] 30 mg PO DAILY 08/31/18 [History] Meloxicam [Mobic] 15 mg PO DAILY 08/31/18 [History] Methylphenidate HCl [Ritalin] 10 mg PO BID 08/31/18 [History] Milk Thistle/Nac/Dandel/Turmer [Liver Complex Tablet] 1 tab PO DAILY 08/31/18 [History] Modafinil [Provigil] 1 tab PO BID 08/31/18 [History] Neomycin Sulf/Bacitracin/Poly [Ejfxtz-Sjfiq-Egygyoy Eye Oint] 1 drop BOTH EYES TID 08/31/18 [History] Tiotropium [place] [Spiriva Respimat] 2 puff IH DAILY 08/31/18 [History] hydroCHLOROthiazide [Hydrochlorothiazide] 25 mg PO DAILY 08/31/18 [History] Furosemide [Lasix] 40 mg PO DAILY 09/01/18 [History] Potassium Chloride [K-Tab ER] 20 meq PO BID 09/01/18 [History] hydrOXYzine pamoate [HydrOXYzine Pamoate] 25 mg PO TID PRN 09/01/18 [History] metFORMIN [Glucophage] 500 mg PO 0800 09/01/18 [History] HYDROcodone/Acet 5/325 mg [Downs 5-325 mg] 1 tab PO Q4H PRN 09/03/18 [History] Allergies/Adverse Reactions: Allergy/AdvReac Type Severity Reaction Status Date / Time acetaminophen [From Percocet] Allergy Itching Verified 08/25/18 14:06 oxycodone [From Percocet] Allergy Itching Verified 08/25/18 14:06 Sulfa (Sulfonamide Allergy Hives Verified 08/25/18 14:06 Antibiotics) - Respiratory Orders Oxygen / L per min Smoking Cessation: Smoking cessation has been advised. For more information, call the [employer] Quit Line at 7-199-TVTLNOW. - Advance Directives Code Status: Full Code - Mobility Orders Ambulate - Rehabiliation Orders Rehab Potential: Good Rehab Orders: Evaluation for Physical Therapy, Evaluation for Occupational Therapy - Diet Orders No Concentrated Sweets CERTIFICATION: I certify that the transfer of the above named patient to an Extended Care Facility is necessary for the continuing treatment of the diagnosis listed. The above information is true and accurate reflection of patient's current condition. Confidential - Redisclosure prohibited without a patient's written consent.
--- NOTE | 2018-09-09 11:39 | Discharge Summary ---
Addendum entered and electronically signed by Primo Estrada MD 09/09/18 13:26: I have personally performed a face to face evaluation on this patient. I have r eviewed and agree with the care plan. History and Exam by me shows: Patient is without complaint. She understands that she is in need of further therapy and assistance which she cannot have at home and for this reason she is going to an ECF, today. The patient is still wearing an eye patch and I advised her to discontinue this. I expressed that she is to get early follow-up with her eye physician if she has persistent blurred vision or irritation. She informed me that she has an appointment tomorrow afternoon with her eye physician, as well. She states that her eye is often slightly irritated morning but generally doing much better than it was a few days ago. I explained that she should have 3 or 4 more days of oral antibiotics as well as the eye antibiotic ointment. Bowels and bladder are functioning well and she has no other complaints. Discussed care with other providers and/or nursing. Patient has no complaint of chest discomfort, dyspnea, orthopnea, palpitations, nausea or vomiting, constipation or diarrhea, other changes in bowel habits, difficulty with urination, rash or itching, or other new complaints, except as mentioned above. Review of systems is otherwise negative. Examination: (Except as mentioned above): General: In no apparent distress. Alert and oriented 3. Nondiaphoretic. She is still in a right shoulder sling. Head: Atraumatic and normocephalic. Respiratory: No use of accessory muscles. Lungs are clear throughout. Normal airflow. Cardiovascular: Regular rate and rhythm without murmur appreciated. Abdomen: Bowel sounds are normal. No hepatosplenomegaly mass or tenderness appreciated. Obese and therefore difficult to palpate deeply. Extremities: No cyanosis clubbing or edema. Distal neurovascular function is intact in the right upper extremity. Skin: Warm and non-diaphoretic with no new lesions noted. All of her questions about discharge and medication, follow-up instructions, etc. were asked and answered. Original Note: Date of Encounter: 09/09/18 Time of Encounter: 11:37 - Discharge Diagnosis (1) Status post reverse total arthroplasty of right shoulder Priority: Primary Status: Acute Comments: improving. pain controlled with current meds. continue sling. f/u with ortho as scheduled. continue PT and OT. (2) Periorbital cellulitis of left eye Priority: Secondary Status: Acute Comments: continue maxitrol and keflex for 5 days total. improving. (3) Hypertension Priority: Secondary Status: Chronic Comments: controlled with current meds. monitor BP. Qualifiers: Hypertension type: unspecified Qualified Code(s): I10 - Essential (primary) hypertension (4) COPD (chronic obstructive pulmonary disease) Priority: Secondary Status: Chronic Comments: controlled with current meds. monitor O2 sats, continue O2 per NC at 2 liter. Qualifiers: COPD type: unspecified COPD Qualified Code(s): J44.9 - Chronic obstructive pulmonary disease, unspecified (5) Obesity (BMI 30-39.9) Priority: Secondary Status: Acute (6) Diabetes 1.5, managed as type 2 Priority: Secondary Status: Chronic Comments: controlled with current meds. monitor FSBS. Hospital course: Ms. Walls is a 68 year old female s/p right shoulder arthroplasty discharging to [facility]. has been improving with therapy, ambulates with quad cane. still has loss of balance. has been on O2 per NC for 1.5 yrs. denies SOB, fever, chills, NVD. bowels moving as normal. maintaining appetite and hydration. pain controlled with current meds. Discharge discussed with: patient, family, nurse, social work - Time Spent with Patient Total time spent providing and/or coordinating discharge services: Less than 30 minutes - Discharge Medications Home Medications: Albuterol Sulfate 2.5 mg IH Q6H PRN 08/31/18 [History] Albuterol Sulfate [Albuterol Inhaler] 2 puff IH Q6H PRN 08/31/18 [History] Allopurinol [Zyloprim 100 MG] 100 mg PO DAILY 08/31/18 [History] Bupropion HCl [Wellbutrin Xl] 300 mg PO DAILY 08/31/18 [History] Heidy Albicans 1 tab PO DAILY 08/31/18 [History] Diclofenac Sodium [Voltaren] 2 - 3 gm TD QID 08/31/18 [History] Duloxetine HCl [Cymbalta] 60 mg PO DAILY 08/31/18 [History] Fluticasone Propionate Nasal [Flonase] 1 spray NS DAILY 08/31/18 [History] Fluticasone/Vilanterol [Breo Ellipta 100-25 Mcg INH] 1 puff IH DAILY 08/31/18 [H istory] Lansoprazole [Prevacid] 30 mg PO DAILY 08/31/18 [History] Meloxicam [Mobic] 15 mg PO DAILY 08/31/18 [History] Methylphenidate HCl [Ritalin] 10 mg PO BID 08/31/18 [History] Milk Thistle/Nac/Dandel/[place]mer [Liver Complex Tablet] 1 tab PO DAILY 08/31/18 [History] Modafinil [Provigil] 1 tab PO BID 08/31/18 [History] Neomycin Sulf/Bacitracin/Poly [Nurgjn-Ukdck-Hjqnzpf Eye Oint] 1 drop BOTH EYES TID 08/31/18 [History] Tiotropium [place] [Spiriva Respimat] 2 puff IH DAILY 08/31/18 [History] hydroCHLOROthiazide [Hydrochlorothiazide] 25 mg PO DAILY 08/31/18 [History] Furosemide [Lasix] 40 mg PO DAILY 09/01/18 [History] Potassium Chloride [K-Tab ER] 20 meq PO BID 09/01/18 [History] hydrOXYzine pamoate [HydrOXYzine Pamoate] 25 mg PO TID PRN 09/01/18 [History] metFORMIN [Glucophage] 500 mg PO 0800 09/01/18 [History] HYDROcodone/Acet 5/325 mg [[place] 5-325 mg] 1 tab PO Q4H PRN 09/03/18 [History] Allergies/Adverse Reactions: Allergy/AdvReac Type Severity Reaction Status Date / Time acetaminophen [From Percocet] Allergy Itching Verified 08/25/18 14:06 oxycodone [From Percocet] Allergy Itching Verified 08/25/18 14:06 Sulfa (Sulfonamide Allergy Hives Verified 08/25/18 14:06 Antibiotics) Date of admission: 09/03/18 14:10 Primary care physician: Akiko Santana M.D. Consults: 09/03/18 14:36 Consult to Occupational Therapy [CONS] Routine Comment: Evaluate, develop and implement POC Reason for Consult: eval and tx Does patient have active BEDREST order?: No Is patient medically & hemodynamically stable?: Yes Consult to Physical Therapy [CONS] Routine Comment: Evaluate, develop and implement POC Reason for Consult: eval and tx Does patient have active BEDREST order?: No Is patient medically & hemodynamically stable?: Yes Consult to Recreational Therapy [CONS] Routine Comment: Consult to Manufacturing Shift Supervisor [CONS] Routine Reason for SW Consult: Please evaluate for home situation and discharge planning Discharging clinician: Primo Estrada Anticipated date of discharge: 09/09/18 - Constitutional Vitals: Temp Pulse Resp BP Pulse Ox 98.0 F 81 18 132/65 97 09/09/18 06:51 09/09/18 06:51 09/09/18 06:51 09/09/18 06:51 09/09/18 06:51 General appearance: Present: cooperative, A&O X 3, morbidly obese, pleasant, no acute distress, answers questions appropriately - Head Head exam: Present: atraumatic, normocephalic - Eye Eye exam: Present: PERRL, conjuntiva pink, sclera anicteric Pupils: Present: PERRL - Neck Neck exam general surgery: Present: supple, trachea midline. Absent: lymphadenopathy - Respiratory Respiratory exam: Present: CTAB. Absent: accessory muscle use, rales, rhonchi, wheezes - Cardiovascular Cardiovascular exam: Present: RRR, +S1, +S2. Absent: diastolic murmur, gallop, rubs, systolic murmur - GI/Abdominal GI/Abdominal exam: Present: normal bowel sounds, soft, no peritoneal signs. Absent: distended, tenderness - Extremities Exam Extremities exam: Present: warm, radial pulses palpable and symmetrical. Absent: calf tenderness, cyanotic, pedal edema Additional comments: trace pedal edema. - Incison Comments: right shoulder surgical incision drsg dry and intact, no drainage or sign of infection. arm in sling. - Neurological Exam Neurological exam: Present: CN II-XII intact, oriented X3, no focal deficits. Absent: pronater drift, facial droop, speech deficit - Skin Skin exam: Present: dry, intact - Patient Status Disposition: Transfer SNF Condition: Good Functional capacity at discharge: uses cane/walker Overall status at discharge: patient is progressing back to baseline - Discharge Instructions Follow Up With: Akiko Santana M.D. [Primary Care Provider] - - Diet and Activity Activity: as per physical therapy Diet: diabetic diet
== END 2018-09-09 16:40 | DRG 560 ==
LOC: INPGRE 14:10